=== PATIENT | male | born 1995 | race Caucasian/White ===

== ENCOUNTER 2020-09-28 10:34 | Emergency (ER) | payer SELFPAY ==
[2020-09-28 10:48] VITALS: BP 151/85; PULSE 87; RESP 18; TEMP 36.8; O2SAT 100
--- NOTE | 2020-09-28 11:02 | ED.LOWEXIN ---
HPI - Extremity Injury (Lower) General Chief Complaint: Extremity Injury, Lower Stated Complaint: infection right great toe Time Seen by Provider: 09/28/20 10:50 Source: patient and RN notes reviewed Mode of arrival: ambulatory Limitations: no limitations History of Present Illness HPI Narrative: Patient presents today complaining of an infection to his right great toenail x3 to 4 weeks. He was initially seen at [place] urgent care at that time of onset of symptoms and placed on a course of Bactrim. States his symptoms did improve for short period of time then worsened again. He has been soaking with Epsom salt and warm water, which does help to soften the area. 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 He has not been able to follow-up with anyone since his visit at urgent care due to insurance concerns. Related Data Allergies Allergy/AdvReac Type Severity Reaction Status Date / Time No Known Allergies Allergy Verified 09/28/20 10:52 Review of Systems Review of Systems: Narrative: CONSTITUTIONAL: Denies body aches, fever, chills, or sweats. EYES: Denies visual changes, redness, or discharge. ENT: Denies rhinorrhea, congestion, sore throat, or otalgia. CARDIOVASCULAR: Denies chest pain, palpitations, or edema. RESPIRATORY: Denies cough or dyspnea. GASTROINTESTINAL: Denies abdominal pain, nausea, vomiting, or diarrhea. GENITOURINARY: Denies dysuria or hematuria. SKIN: Denies rash, itching, or wounds.+ Toe infection MUSCULOSKELETAL: Denies back pain, joint pain, or myalgia. NEUROLOGIC: Denies headache, numbness, tingling, or weakness. PSYCH: Denies depression or anxiety. PMFSH Comments At time of signature, I have reviewed and agree with nursing past medical, surgical, social and family history unless otherwise noted. Please see nursing chart for further information. There is no relevant family history pertinent to the presenting complaint Exam Narrative: Exam Narrative: GENERAL: Well-appearing, well-nourished, and in no acute distress. HEAD: Normocephalic, atraumatic. EYES: EOMI. No redness or drainage. Conjunctivae normal. ENT: Mucous membranes pink and moist. NECK: Normal AROM. CHEST: No respiratory distress. EXTREMITIES: Right great toe: Lateral nail fold has some overgrown granulation tissue. Moderate amount of green purulent discharge is present. Granulation tissue in the nail fold is tender to palpation. Distal sensation intact. Capillary refill normal. Full range of motion of the toe. SKIN: Warm, dry, no rash. Capillary refill normal. Normal skin turgor. NEURO: No focal deficits. Alert and oriented x3. Gait steady. PSYCH: Normal affect. No signs of depression or anxiety. Course Vital Signs Vital signs: Vital Signs Temperature 98.2 F 09/28/20 10:48 Pulse Rate 87 09/28/20 10:48 Respiratory Rate 18 09/28/20 10:48 Blood Pressure 151/85 H 09/28/20 10:48 Pulse Oximetry 100 09/28/20 10:48 Temperature 98.2 F 09/28/20 10:48 Pulse Rate 87 09/28/20 10:48 Respiratory Rate 18 09/28/20 10:48 Blood Pressure 151/85 H 09/28/20 10:48 Pulse Oximetry 100 09/28/20 10:48 Reviewed. Pt has been instructed to follow up with his PCP regarding his elevated blood pressure today. MDM - Extremity Injury (Lower) Differential Diagnosis Differential diagnosis: Likely other (Cellulitis, paronychia, ingrown toenail, abscess) Critical Care Time Critical Care Time Critical Care Time: No Discharge Plan Discharge Clinical Impression: Ingrown toenail of right foot with infection Patient Disposition: Home, Self-Care Condition: Stable Instructions: Antibiotic Form, Ingrown Nail (ED) Additional Instructions: Take the clindamycin as prescribed until gone. Soak your foot in warm water and Betadine. Add the Betadine so the water is the color of ice tea. Apply antibiotic ointment when you are finished soaking the foot. Keep covered while still draining.
== END 2020-09-28 11:08 | disposition home or self-care (01) ==
PROVIDERS: Emergency Provider Nurse Practitioner
DX: L60.0 Ingrowing nail (principal)
CPT/HCPCS: 99213; G0463